=== PATIENT | female | born 1965 | race Caucasian/White ===

== ENCOUNTER → 2017-08-27 | Outpatient (CLI) | payer OTHER | LOC: FIMAGING 09:35 | PROVIDERS: ATTEND Obstetrics & Gynecology | DX: Z12.31 Encounter for screening mammogram for malignant neoplasm of breast (principal); Z80.3 Family history of malignant neoplasm of breast | CPT/HCPCS: G0202 ==

== ENCOUNTER → 2018-09-01 | Outpatient (CLI) | payer OTHER | LOC: FIMAGING 14:20 | PROVIDERS: ATTEND Obstetrics & Gynecology | DX: Z12.31 Encounter for screening mammogram for malignant neoplasm of breast (principal); Z80.3 Family history of malignant neoplasm of breast ==

== ENCOUNTER 2018-10-30 21:35 | Emergency (ER) | payer OTHER ==
[2018-10-30] MEDS ORDERED: NS 1,000 ML IV ONE (21:43)
[2018-10-30] MEDS ORDERED: ONDANSETRON 4 MG/2 ML VIAL ONE (21:44)
[2018-10-30] MEDS ORDERED: HALOPERIDOL LACT 5 MG/ML INJ IVP ONE (21:44)
[2018-10-30] MEDS ORDERED: HALOPERIDOL LACT 5 MG/ML INJ ONE (21:44)
[2018-10-30 21:50] LABS: PLATELET COUNT 210 10^3/uL (150-400)
--- NOTE | 2018-10-30 21:51 | EDPHY ---
H & P Stated Complaint: severe abd pain, vomiting Time Seen by Provider: 10/30/18 21:37 HPI/ROS: CHIEF COMPLAINT: Abdominal pain HISTORY OF PRESENT ILLNESS: 53-year-old female arrives via private vehicle complaining of epigastric and periumbilical pain which started approximately 1 hr after eating salad and having a Evelyn this evening. She notes prior history of similar for which he has never sought medical attention. notes that over the past 20 years she has had similar episodes once every few months but has never sought medical attention. These episodes typically last a few minutes however this episode has lasted approximately 30-60 minutes. No recent illness. No fever or chills. No back or flank pain. No trauma or fall. No urinary abnormality. No recent illness. REVIEW OF SYSTEMS: 10 systems reviewed and negative with the exception of the elements mentioned in the history of present illness PAST MEDICAL & SURGICAL HISTORY: Tubal ligation SOCIAL HISTORY:Nonsmoker. . No drug use. PHYSICAL EXAM (Prior to examination, patient consented to physical exam, hands were washed and my usual and customary physical exam procedures followed) 1) GENERAL: Well-developed, well-nourished, alert and oriented. Appears uncomfortable. Screaming. 2) HEAD: Normocephalic, atraumatic 3) HEENT: Pupils equal, round, reactive to light bilaterally. Sclera anicteric. 4) NECK: Full range of motion, no meningeal signs. 5) LUNGS: Clear auscultation bilaterally, no wheezes, no rhonchi, no retractions. 6) HEART: Regular rate and rhythm, no murmur, no heave, no gallop. 7) ABDOMEN: Guarding abdomen, tender to palpation epigastrium. Negative Mackay 's., 8) MUSCULOSKELETAL: Moving all extremities, no focal areas of tenderness, no obvious trauma. No peripheral edema or discoloration. 9) BACK: No CVA tenderness, no midline vertebral tenderness, no fluctuance, no step-off, no obvious trauma, no visual or palpable abnormality. 10) SKIN: No rash, no petechiae. 11) Psychiatric: Patient is oriented X 3, there is no agitation. DIFFERENTIAL DIAGNOSIS: My differential diagnosis includes, but is not limited to, acute appendicitis, acute cholecystitis, bowel obstruction, acute pancreatitis, ovarian torsion, ectopic , gastritis and urinary tract infection. The patient understands that this diagnosis is provisional and can never be 100% accurate. This is a partial list of diagnoses considered. These considerations are based on history, physical exam, past history and reassessment. - Personal History Tetanus Vaccine Date: < 10 YEARS - Medical/Surgical History Hx Asthma: No Hx Chronic Respiratory Disease: No Hx Diabetes: No Hx Cardiac Disease: No Hx Renal Disease: No Hx Cirrhosis: No Hx Alcoholism: No Hx HIV/AIDS: No Hx Splenectomy or Spleen Trauma: No Other PMH: denies - Social History Smoking Status: Never smoked Constitutional: Initial Vital Signs Temperature (C) 36.4 C 10/30/18 21:41 Heart Rate 76 10/30/18 21:41 Respiratory Rate 32 H 10/30/18 21:41 Blood Pressure 114/74 10/30/18 21:41 O2 Sat (%) 100 10/30/18 21:41 O2 Delivery Mode Room Air Allergies/Adverse Reactions: No Known Allergies Allergy (Unverified 10/30/18 21:40) Home Medications: Medication Instructions Recorded Diazepam [Valium] 5 mg PO TIDPRN PRN #15 tablet 12/24/11 Hydrocodone Bit/Acetaminophen 1 - 2 tab PO Q4-6PRN #15 tab 12/24/11 [Vicodin 5/500] No Medications [NO HOME 1 ea MISC 12/24/11 MEDICATIONS] Pantoprazole Sodium [Protonix 40mg 40 mg PO DAILY #30 tab 10/30/18 (RX)] Medical Decision Making - Diagnostics Imaging Results: Imaging Impressions Abdomen CT 10/30/18 22:10 Impression: 1. Moderate hiatal hernia with thickening of the distal esophagus which could related to esophagitis. 2. Linear radiopaque foreign object in the posterior pelvis, compatible with a displaced Essure device. On the vehicle modification technician view this is in a similar position to the comparison from 2012, although comparison between CT and plain film is limited. 3. Adnexal varices, which can be seen in asymptomatic patients as well as patients with pelvic congestion syndrome. 4. Additional findings as above. Findings discussed with Lisa Solis 10/30/2018 at 22:53. Images reviewed myself ED Course/Re-evaluation: Re-evaluation with serial exams most recently at 11:30 p.m.. Discussed her imaging results, specifically the radiopaque area which patient is aware of. She is sleeping at this time. I have re-examined her abdomen which is soft no guarding no rebound. Discussed the multiple possible etiologies for her abdominal pain which include, but not limited to, abdominal migraine, mesenteric ischemia, acute pancreatitis. She is noted to have a hiatal hernia. At this time I think the patient can be discharged home. I recommended initiation of proton pump inhibitor therapy and follow up with Gastroenterology as she may necessitate upper endoscopic evaluation. In the meantime she has been given my usual and customary abdominal precautions instructions and feels comfortable being discharged home. Care of patient under supervision of secondary supervising physician Dr Llamas with whom I discussed case. - Data Points Laboratory Results: Laboratory Results 10/30/18 21:39 10/30/18 21:39 10/30/18 10/30/18 10/30/18 21:39 21:39 21:39 WBC 6.54 10^3/uL 10^3/uL (3.80-9.50) RBC 4.17 10^6/uL L 10^6/uL (4.18-5.33) Hgb 13.1 g/dL g/dL (12.6-16.3) Hct 39.1 % % (38.0-47.0) MCV 93.8 fL fL (81.5-99.8) MCH 31.4 pg pg (27.9-34.1) MCHC 33.5 g/dL g/dL (32.4-36.7) RDW 11.9 % % (11.5-15.2) Plt Count 210 10^3/uL 10^3/uL (150-400) MPV 9.1 fL fL (8.7-11.7) Neut % (Auto) 56.9 % % (39.3-74.2) Lymph % (Auto) 32.6 % % (15.0-45.0) [place] % (Auto) 8.0 % % (4.5-13.0) Eos % (Auto) 1.4 % % (0.6-7.6) Baso % (Auto) 0.9 % % (0.3-1.7) Nucleat RBC Rel Count 0.0 % % (0.0-0.2) Absolute Neuts (auto) 3.73 10^3/uL 10^3/uL (1.70-6.50) Absolute Lymphs (auto) 2.13 10^3/uL 10^3/uL (1.00-3.00) Absolute Monos (auto) 0.52 10^3/uL 10^3/uL (0.30-0.80) Absolute Eos (auto) 0.09 10^3/uL 10^3/uL (0.03-0.40) Absolute Basos (auto) 0.06 10^3/uL 10^3/uL (0.02-0.10) Absolute Nucleated RBC 0.00 10^3/uL 10^3/uL (0-0.01) Immature Gran % 0.2 % % (0.0-1.1) Immature Gran # 0.01 10^3/uL 10^3/uL (0.00-0.10) Sodium 141 mEq/L mEq/L (135-145) Potassium 4.0 mEq/L mEq/L (3.5-5.2) Chloride 106 mEq/L mEq/L (97-110) Carbon Dioxide 25 mEq/l mEq/l (22-31) Anion Gap 10 mEq/L mEq/L (6-14) BUN 18 mg/dL mg/dL (7-23) Creatinine 1.0 mg/dL mg/dL (0.6-1.0) Estimated GFR 58 Glucose 101 mg/dL H mg/dL (70-100) Calcium 8.9 mg/dL mg/dL (8.5-10.4) Total Bilirubin 0.4 mg/dL mg/dL (0.1-1.4) Conjugated Bilirubin 0.2 mg/dL mg/dL (0.0-0.5) Unconjugated Bilirubin 0.2 mg/dL mg/dL (0.0-1.1) AST 26 IU/L IU/L (14-46) ALT 27 IU/L IU/L (9-52) Alkaline Phosphatase 63 IU/L IU/L (38-126) Total Protein 6.8 g/dL g/dL (6.3-8.2) Albumin 4.3 g/dL g/dL (3.5-5.0) Lipase 395 IU/L H IU/L (23-300) Beta HCG, Qual NEGATIVE Medications Given: Discontinued Medications Haloperidol Lactate (Haldol Injection) 2.5 mg IVP EDNOW ONE Stop: 10/30/18 21:45 Last Admin: 10/30/18 21:50 Dose: 2.5 mg Sodium Chloride (Ns) 1,000 mls @ 0 mls/hr IV EDNOW ONE; Wide Open PRN Reason: Protocol Stop: 10/30/18 21:44 Last Admin: 10/30/18 21:49 Dose: 1,000 mls Departure - Departure Disposition: Home, Routine, Self-Care Clinical Impression: Abdominal pain Qualifiers: Abdominal location: epigastric Qualified Code(s): R10.13 - Epigastric pain Condition: Good Instructions: Acute Abdominal Pain (ED) Additional Instructions: Seek immediate medical attention if you develop new or worsening symptoms, if you develop fevers, chills, inability to tolerate oral intake or any other symptoms that concerns you. Referrals: Marcos Cheema MD [Medical Doctor] - As per Instructions Prescriptions: Pantoprazole Sodium [Protonix 40mg (RX)] 40 mg PO DAILY #30 tab
[2018-10-30] MEDS ORDERED: IOPAMIDOL (ISOVUE-300) 100 ML BTL ONE (22:15)
[2018-10-30 23:30] VITALS: BP 96/66
== END 2018-10-30 23:50 | disposition home or self-care (01) ==
DX: R10.13 Epigastric pain (principal); E86.9 Volume depletion, unspecified
CPT/HCPCS: 82435-PO; 82565-PO; 82947-PO; 84132-PO; 84295-PO; 84520-PO; 85014-PO; 96374; J1630; J2405; Q9967